=== PATIENT | male | born 1950 | race Caucasian/White ===

== ENCOUNTER → 2023-06-06 15:20 | Outpatient (REF) | payer OTHER, SELFPAY | LOC: RAD 15:20 | PROVIDERS: ATTENDING PHYSICIAN Family Medicine | DX: N20.0 Calculus of kidney (principal) | CPT/HCPCS: 76770 ==

== ENCOUNTER 2023-10-27 08:36 | Emergency (ER) | payer OTHER, SELFPAY ==
[2023-10-27 08:38] VITALS: BP 113/93
[2023-10-27 08:39] VITALS: BP 179/73
--- NOTE | 2023-10-27 08:40 | ED.GENMED ---
History of Present Illness
General
Chief Complaint: Breathing Problem
Time Seen by Provider: 10/27/23 08:40
History of Present Illness
History of Present Illness:
HPI: Patient came in by ambulance due to chest pain onset around 3am. Woke up with chest tightness and epigastric pain toward the upper left chest. This lasted 30min and had some labored breathing which also resolved. 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 He also had what felt like indigestion yesterday which resolved after taking Rolaids.
EXAM:
GENERAL: Well appearing in no distress
HEENT: Moist oral mucosa
CARDIOVASCULAR: No murmurs, bradcardic heart rate, regular rhythm, No chest wall tenderness
PULMONARY: No respiratory distress, breath sounds are clear and equal
ABDOMEN: Soft with no peritoneal signs, no tenderness
NEUROLOGIC: Excellent strength all extremities, no coordination deficits
PSYCHIATRIC: Appropriate mental status, normal insight and judgement
EXTREMITIES: Nontender, no edema, moves all extremities equally
SKIN: No rash, no lesions
TIME OF INITIAL ENCOUNTER: 9 AM
NUMBER AND COMPLEXITY OF PROBLEMS ADDRESSED AT THE ENCOUNTER
� Chronic conditions affecting care: HTN, hyperlipidemia
� Acute Exacerbation and/or Progression of Chronic Illness: This is an acute problem
� Differential Diagnosis includes: Anxiety, noncardiac chest pain, chest wall pain, ACS
AMOUNT AND/OR COMPLEXITY OF DATA TO BE REVIEWED AND ANALYZED
� I performed an independent evaluation of and my interpretation is:
EKG: Sinus 48, left axis deviation, nonspecific ST abnormality
CT:
X-rays: Chest x-ray unremarkable other than cardiomegaly
Laboratory Studies: Troponin and BNP unremarkable CBC and chemistries also unremarkable
Other:
� Review of other/old records: No significant old records available for review in [facility] other than an ultrasound that suggested bilateral medical renal disease in 2023 (appeared normal in 2019)
� Clinical information was obtained by an independent historian:
� Prescriptions/Medications Considered but not given:
� Further testing considered but not performed:
RISK OF COMPLICATIONS AND/OR MORBIDITY OR MORTALITY OF PATIENT MANAGEMENT
� Social determinants of health affecting care: Lives at home
� Discussion with other providers:
� Escalation of care including admission/observation vs risk of discharge considered: Due to poor quality, repeat EKG was obtained which shows nonspecific ST abnormality. Initial troponin negative. However given the description
of the symptoms along with reported diaphoresis repeat troponin obtained. 2 EKGs have been obtained and are normal, repeat EKG is unchanged from prior. I recommend patient follow-up closely with a child specialist as an outpatient.
Phy Exam
Physical Exam
Physical Exam:
See HPI
Scores
Heart Failure Risk
Heart Failure Risk Score: Not Applicable
Course
Orders/Labs/Results
Orders:
Orders
10/27/23 08:45
EKG [Electrocardiogram (*1)] Urgent
Reason for Study: Shortness of Breath
EKG- Treatment ONCE
10/27/23 09:03
CR Chest - 2 Views Urgent
Comment:
Reason For Exam: resolved cp/sob
10/27/23 09:06
CMP [Comprehensive Metabolic Panel] Urgent
Complete Blood Count/With Diff Urgent
NT-proBNP Urgent
Troponin I Urgent
10/27/23 09:48
Electrocardiogram (*1) Urgent
Reason for Study: Chest Pain
EKG- Treatment ONCE
10/27/23 11:00
EKG- Treatment ONCE
10/27/23 11:30
EKG [Electrocardiogram (*1)] Urgent
Reason for Study: Chest Pain
10/27/23 11:39
Troponin I Urgent
Abnormal Lab Results
10/27/23
09:06
MPV 10.7 H fL
(7.4-10.4)
Abs Immat Gran (auto) 0.1 H 10^3/uL
(0-0.05)
Absolute Lymphs (auto) 1.1 L 10^3/uL
(1.2-3.4)
Absolute Monos (auto) 0.7 H 10^3/uL
(0.1-0.6)
Immature Gran % 0.8 H %
(0-0.5)
Lymphocytes % 14.3 L %
(20.5-51.1)
Glucose 118 H mg/dl
(70-99)
10/27/23 09:06
10/27/23 09:06
Vital Signs
Initial and Last Documented VS:
Initial Vital Signs
BP
113/93
10/27/23 08:38
Last Documented Vital Signs
Temp Pulse Resp BP Pulse Ox
97.6 F 45 10 154/82 96
10/27/23 08:39 10/27/23 10:45 10/27/23 10:45 10/27/23 09:00 10/27/23 10:45
*Critical Care Note
Total Time (30-74mins, 75-104mins- exclusive of procedures): Not Applicable
ED Attending Note
-
Portions of this chart may have been created with voice recognition software.� Occasional wrong word or��sound alike� substitutions may have occurred due to the inherent limitations of voice recognition software.
Discharge Plan
Departure
Prescriptions:
No Action
atenolol 100 mg Tablet
100 mg PO DAILY
tamsulosin 0.4 mg Capsule
0.4 mg PO DAILY
amlodipine [Norvasc] 10 mg Tablet
10 mg PO DAILY
simvastatin 20 mg Tablet
20 mg PO DAILY
lisinopril 40 mg Tablet
40 mg PO DAILY
Referrals:
Zahida Leger DO [Family Provider] -
Interventions
Interventions:
*Risk Screen - Suicide Last Done: 10/27/23 08:39
*General Assessment Last Done: 10/27/23 08:47
*Neglect/Abuse Screening Last Done: 10/27/23 08:39
ED- Fall Risk Assessment Last Done: 10/27/23 08:56
*ED COVID-19 Vaccine History Last Done: 10/27/23 08:39
ED- Cardiac Assessment Last Done: 10/27/23 08:47
ED- Pulmonary Assessment Last Done: 10/27/23 08:47
Discharge Date and Time
Print Language: KOREAN
[2023-10-27 08:46] VITALS: BMI 38.7
[2023-10-27 08:53] VITALS: BP 179/73
[2023-10-27 09:00] VITALS: BP 154/82
[2023-10-27 09:24] LABS: % Basophils 0.4 % (0-2); % Eosinophils 1.2 % (0-6); % Immature Granulocytes 0.8 % (0-0.5); % Lymphocytes 14.3 % (20.5-51.1); % Monocytes 9.1 % (1.7-9.3); % Neutrophils 74.2 % (42.2-75.2); Absolute Eosinophils 0.1 10^3/uL (0-0.7); Absolute Immature Granulocytes 0.1 10^3/uL (0-0.05); Absolute Lymphocytes 1.1 10^3/uL (1.2-3.4); Absolute Monocytes 0.7 10^3/uL (0.1-0.6); Absolute Neutrophils 5.5 10^3/uL (1.4-6.5); Hematocrit 43.4 % (39.0-52.0); Hemoglobin 15.1 g/dL (13.0-18.0); Mean Corp Hgb Conc. 34.8 g/dL (33.0-37.0); Mean Corpuscular Hgb 28.4 pg (27.0-31.0); Mean Corpuscular Volume 81.6 fL (80.0-94.0); Mean Platelet Volume 10.7 fL (7.4-10.4); Nucleated Red Blood Cells % 0 % (-); Platelet Count 204 10^3/uL (130-400); Red Blood Cell Count 5.32 10^6/uL (4.70-6.10); Red Cell Dist. Width 13.2 % (11.5-14.5); White Blood Cell Count 7.4 10^3/uL (4.8-10.8)
[2023-10-27 09:34] LABS: ALT (SGPT) 18 U/L (0-50); AST (SGOT) 34 U/L (17-59); Albumin 4.5 g/dl (3.5-5.0); Alkaline Phosphatase 89 U/L (38-126); Blood Urea Nitrogen 20 mg/dl (9-20); Calcium 9.7 mg/dl (8.4-10.2); Carbon Dioxide 23 mmol/L (22-30); Chloride 105 mmol/L (98-107); Estimated Creatinine Clearance 72 ml/min; Glucose 118 mg/dl (70-99); Potassium 4.4 mmol/L (3.5-5.1); Sodium 141 mmol/L (135-145); Total Bilirubin 0.8 mg/dl (0.2-1.3); Total Protein 7.1 g/dl (6.3-8.2); eGFR > 60.00
[2023-10-27 09:43] LABS: NT-proBNP 52.3 pg/ml; Troponin I < 0.012 ng/ml
[2023-10-27 12:10] LABS: Troponin I < 0.012 ng/ml
== END 2023-10-27 12:52 | disposition home or self-care (01) ==
LOC: EMR 08:36
PROVIDERS: EMERGENCY PHYSICIAN Emergency Medicine; FAMILY PHYSICIAN Family Medicine
DX: R07.89 Other chest pain (principal); R10.13 Epigastric pain
CPT/HCPCS: 99283; 71046; 80053; 83880; 84484; 85025; 93005

== ENCOUNTER → 2023-11-05 09:44 | Outpatient (REF) | payer OTHER, SELFPAY | LOC: RCS 09:44 | PROVIDERS: ATTENDING PHYSICIAN Student in an Organized Health Care Education/Training Program; FAMILY PHYSICIAN Family Medicine | DX: R07.89 Other chest pain (principal) | CPT/HCPCS: 93017; 93350 ==

== ENCOUNTER → 2023-12-23 09:14 | Outpatient (REF) | payer OTHER, SELFPAY | LOC: RAD 09:14 | PROVIDERS: ATTENDING PHYSICIAN Family Medicine | DX: I10 Essential (primary) hypertension (principal) | CPT/HCPCS: 93975 ==